=== PATIENT | male | born 1930 | race Caucasian/White ===

== ENCOUNTER → 2016-08-12 | Outpatient (CLI) | payer MEDICARE, OTHER ==
[~2016-08-12] MED LIST: ADVAIR 250-501 EACH INH; ASPIRIN EC81 MG PO; CARDIZEM CD (T240 MG PO; COZAAR100 MG PO; DESYREL50 MG PO; INSPRA25 MG PO; LASIX40 MG PO; NASACORT16.9 ML NOSE; NORVASC5 MG PO; PRILOSEC20 MG PO; PROTONIX40 MG PO; TOPROL XL100 MG PO
== END | disposition disaster alternative care site (69) ==
LOC: LGSMG 16:57
DX: D64.9 Anemia, unspecified (principal); I10 Essential (primary) hypertension; R80.9 Proteinuria, unspecified; Z79.899 Other long term (current) drug therapy

== ENCOUNTER → 2016-11-11 | Outpatient (CLI) | payer MEDICARE, OTHER | LOC: LGSMG 12:56 | DX: Z00.00 Encounter for general adult medical examination without abnormal findings (principal); D64.9 Anemia, unspecified; I10 Essential (primary) hypertension; J44.9 Chronic obstructive pulmonary disease, unspecified; R60.0 Localized edema; Z79.899 Other long term (current) drug therapy; E78.2 Mixed hyperlipidemia; R80.9 Proteinuria, unspecified ==